=== PATIENT | male | born 1950 ===

== ENCOUNTER → 2022-11-30 12:36 | Outpatient (CLI) | payer MEDICARE, OTHER, SELFPAY ==
--- NOTE | ~2022-11-30 | MR_ITS ---
MRI of the brain Clinical History: Headache Technique: Axial and sagittal T1-weighted images were acquired. These were followed by axial T2-weigh jaye, diffusion weighted, gradient, and FLAIR images. Following intravenous administration of 14 cc Mu ltiHance gadolinium, T1-weighted fat-sat imaging was performed in the axial and coronal planes. Findings: There is no acute infarct, intracranial hemorrhage, or mass lesion. There are minimal chron ic white matter changes in the periventricular white matter bilaterally. Ventricles and subarachnoid spaces are unremarkable. Orbits are unremarkable. There is mild ethmoid s inus disease. Remaining paranasal sinuses and mastoid air cells are essentially clear. Major intracra nial flow voids are intact. Sagittal midline structures are intact. No abnormal postcontrast enhancement identified. IMPRESSION: No intracranial hemorrhage, mass lesion, or acute infarct. Minimal chronic microvascular ischemic changes. Reviewed, dictated and finalized at [facility].
== END ==
DX: R51.9 Headache, unspecified (principal)
CPT/HCPCS: 70553; A9577